=== PATIENT | female | born 1935 | race Caucasian/White ===

== ENCOUNTER 2016-10-26 19:25 | Emergency (ER) | payer OTHER ==
[~2016-10-26] VITALS: Ht 162.6 cm; Wt 86.5 kg
[~2016-10-26 19:25] MED LIST: ATOR-24 PO; BROM0.07 OPL; PRED1SUS3 OPL; TPRSR25 PO; TRIATAB3 PO; ZOLP5TAB PO
[2016-10-26 19:28] VITALS: TEMP 36.6; Ht 162.6 cm; Wt 86.5 kg
[2016-10-26 20:35] LABS: BASO % 0.4 %; BASO ABS # 0.02 K/uL (0-0.2); COMPLETE YES; EOS % 3.4 %; HEMATOCRIT 38.1 % (37-47); IG% 0.2 %; LYMPH % 34.6 %; LYMPH ABS # 1.82 K/uL (1.2-3.4); MEAN CELL VOLUME 85.4 fL (80-100); MEAN CORPUSCULAR HEMOGLOBIN 28.9 pg (25-34); MEAN CORPUSCULAR HGB CONC 33.9 g/dl (32-36); MEAN PLATELET VOLUME 9.5 fL (7.4-10.4); MONO % 6.3 %; NEUT % 55.1 %; PLATELET COUNT 271 K/uL (130-400); RED BLOOD COUNT 4.46 M/uL (4.2-5.4); WHITE BLOOD COUNT 5.26 K/uL (4.8-10.8)
--- NOTE | 2016-10-26 20:41 | DIAGNOSTIC IMAGING REPORT ---
CT OF THE ABDOMEN AND PELVIS WITHOUT CONTRAST, STONE PROTOCOL CLINICAL HISTORY: Right flank pain. COMPARISON STUDY: None. TECHNIQUE: Helical axial images of the abdomen and pelvis were obtained without IV or oral contrast according to renal stone protocol. FINDINGS: Subpleural opacities within the lungs reflect atelectasis. No renal, ureteral or bladder calculi are present. There are small parapelvic cysts. There is no hydronephrosis or hydroureter. Evaluation of the remainder of the abdomen and pelvis is suboptimal on this unenhanced exam. Unenhanced images of liver, spleen, adrenal glands and pancreas are normal. There is a small fat-containing umbilical hernia. There is no evidence for a bowel obstruction. The appendix is normal. There is sigmoid diverticulosis without evidence for acute diverticulitis. There is no lymphadenopathy. A 2.7 cm subcutaneous lesion of the inferior right buttock measures just above water attenuation. No suspicious skeletal lesions are identified. There is no ascites. IMPRESSION: 1. No urinary calculi or hydronephrosis. 2. No acute process within the abdomen or pelvis on unenhanced exam. 3. 2.7 cm subcutaneous lesion of the inferior right buttock which measures just above water attenuation. This may reflect a sebaceous cyst and could be correlated with physical exam. Electronically signed by: Dmitry Rivera M.D. 10/26/2016 8:40 PM Dictated Date/Time: 10/26/2016 8:32 PM
[2016-10-26] MEDS ORDERED: SODIUM CHLORIDE 0.9% 500ML 500 ML IV STA (20:46)
[2016-10-26] MEDS ORDERED: SODIUM CHLORIDE 0.9% 1000ML 1,000 ML IV STA (20:46)
[2016-10-26 20:55] LABS: ALT/SGPT 25 U/L (12-78); BLOOD UREA NITROGEN 20 mg/dl (7-18); BUN/CREATININE RATIO 13.6 (10-20); CARBON DIOXIDE 33 mmol/L (21-32); CHLORIDE 101 mmol/L (98-107); GLUCOSE 136 mg/dl (70-99); POTASSIUM 2.9 mmol/L (3.5-5.1); SODIUM 142 mmol/L (136-145)
[2016-10-26 20:58] LABS: ALKALINE PHOSPHATASE 105 U/L (45-117); AST/SGOT 24 U/L (15-37)
[2016-10-26 21:02] LABS: URINE APPEARANCE CLEAR (CLEAR); URINE BILIRUBIN NEG (NEG); URINE COLOR YELLOW; URINE EPITHELIAL CELL AUTO 20-30 /lpf (0-5); URINE NITRITE NEG (NEG); URINE PH 6.5 (4.5-7.5); URINE SPECIFIC GRAVITY 1.019 (1.000-1.030); UROBILINOGEN NEG (NEG); ZZUR CULT IF INDIC CLEAN CATCH YES
[2016-10-26 21:06] LABS: MANUAL MICROSCOPIC REQUIRED? NO; REVIEW REQ? NO
[2016-10-26] MEDS ORDERED: METO25TA3 PO (21:35)
[2016-10-26 22:00] LABS: CALCIUM 8.8 mg/dl (8.5-10.1)
--- NOTE | 2016-10-26 22:34 | DIAGNOSTIC IMAGING REPORT ---
ABDOMINAL ULTRASOUND, RIGHT UPPER QUADRANT HISTORY: Right upper quadrant pain. COMPARISON: CT of the abdomen and pelvis performed earlier today. FINDINGS: Hepatic echogenicity is mildly increased. This study is compromised by suboptimal penetration. The pancreatic body is normal. The head and tail are obscured. No gallstones are identified. There is no biliary ductal dilatation. There is no right hydronephrosis. IMPRESSION: 1. No gallstones or biliary ductal dilatation. 2. Fatty liver. Electronically signed by: Dmitry Rivera M.D. 10/26/2016 10:33 PM Dictated Date/Time: 10/26/2016 10:32 PM
[2016-10-26 23:42] VITALS: BP 150/66; PULSE 72; O2SAT 98
--- NOTE | 2016-10-27 02:14 | EMERGENCY ROOM VISIT NOTE ---
History Report prepared by [place]: Javier Perales Under the Supervision of: Dr. Dash Goetz M.D. First contact with patient: 19:38 Chief Complaint: FLANK PAIN Stated Complaint: RT SIDE PAIN (INTERNAL) History of Present Illness The patient is an 81 year old female who presents to the Emergency Room with complaints of intermittent right flank pain that began a week ago. She currently rates her discomfort as a 10/10 in severity. The patient's granddaughter states that the pain is worsened with movement. The patient also complains of mild abdominal pain and an episode of diarrhea once. The patient also complains of chills that began with the pain but that resolved. 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 The patient denies any appendectomy or cholecystectomy. She reports that she takes Lipitor and diuretics for her hypertension and high cholesterol. The patient's granddaughter states that the patient has a history of kidney disease. The granddaughter helps translate and the patient feels comfortable with this. She has not taken any analgesia. The patient denies trauma, LOC, headache, fevers, diaphoresis, visual changes, neck pain, chest pain, breathing difficulties, nausea, vomiting, Left-sided abdominal pain, melena, hematochezia, urinary symptoms, numbness, weakness, lymphadenopathy, rash, or other complaints. Source of History: patient, family (granddaughter) Onset: a week ago Position: other (right CVA) Symptom Intensity: 10/10 Timing: intermittent Modifying Factors (Worsening): movement Associated Symptoms: + abdominal pain, + chills, + diarrhea Review of Systems See HPI for pertinent positives and negatives. A total of ten systems were reviewed and were otherwise negative. Past Medical & Surgical Medical Problems: (1) Concussion W/O Coma (2) Hypertension Nos (3) Pure Hypercholesterolem Family History Heart disease Hypertension Social History Smoking Status: Never Smoker Smokeless Tobacco Use: No Alcohol Use: none Marital Status: Housing Status: lives alone Occupation Status: retired Current/Historical Medications Scheduled Atorvastatin (Lipitor), 40 MG PO QPM Metoprolol Succ (Toprol Xl) (Toprol-Xl), 25 MG PO DAILY Triamterene/Hctz (Triamterene/Hctz 37.5-25MG), 1 TABLET PO QPM Scheduled PRN Zolpidem Tartrate (Ambien), 5 MG PO HS PRN for Sleep Allergies Coded Allergies: Furosemide (Verified Allergy, Unknown, FACE GOT RED, 10/26/16) Physical Exam Vital Signs Date Time Temp Pulse Resp B/P Pulse Ox O2 Delivery O2 Flow Rate FiO2 10/26/16 23:42 72 16 150/66 98 10/26/16 22:46 65 16 138/59 95 Room Air 10/26/16 21:30 65 18 152/70 95 Room Air 10/26/16 20:53 66 10/26/16 19:28 36.6 74 18 136/72 95 Room Air Physical Exam GENERAL: Awake, alert, well-appearing, in no distress HENT: Normocephalic, atraumatic. Oropharynx unremarkable. EYES: Normal conjunctiva. Sclera non-icteric. NECK: Supple. No nuchal rigidity. FROM. No JVD. RESPIRATORY: Clear to auscultation. CARDIAC: Regular rate, normal rhythm. Extremities warm and well perfused. Pulses equal. ABDOMEN: Right upper quadrant tenderness to palpation. Soft, non-distended. No rebound or guarding. No masses. RECTAL: Deferred. There is around rubbery mass in the right gluteal region that seems consistent with a sebaceous cyst or lipoma. MUSCULOSKELETAL: Chest examination reveals no tenderness. The back is symmetrical on inspection without obvious abnormality. There is right CVA tenderness to palpation. No joint edema. LOWER EXTREMITIES: Calves are equal size bilaterally and non-tender. No edema. No discoloration. NEURO: Normal sensorium. No sensory or motor deficits noted. SKIN: No rash or jaundice noted. No zoster. Medical Decision & Procedures ER Provider Diagnostic Interpretation: Radiology results as stated below per my review and radiologist interpretation: CT OF THE ABDOMEN AND PELVIS WITHOUT CONTRAST, STONE PROTOCOL CLINICAL HISTORY: Right flank pain. COMPARISON STUDY: None. TECHNIQUE: Helical axial images of the abdomen and pelvis were obtained without IV or oral contrast according to renal stone protocol. FINDINGS: Subpleural opacities within the lungs reflect atelectasis. No renal, ureteral or bladder calculi are present. There are small parapelvic cysts. There is no hydronephrosis or hydroureter. Evaluation of the remainder of the abdomen and pelvis is suboptimal on this unenhanced exam. Unenhanced images of liver, spleen, adrenal glands and pancreas are normal. There is a small fat-containing umbilical hernia. There is no evidence for a bowel obstruction. The appendix is normal. There is sigmoid diverticulosis without evidence for acute diverticulitis. There is no lymphadenopathy. A 2.7 cm subcutaneous lesion of the inferior right buttock measures just above water attenuation. No suspicious skeletal lesions are identified. There is no ascites. IMPRESSION: 1. No urinary calculi or hydronephrosis. 2. No acute process within the abdomen or pelvis on unenhanced exam. 3. 2.7 cm subcutaneous lesion of the inferior right buttock which measures just above water attenuation. This may reflect a sebaceous cyst and could be correlated with physical exam. Electronically signed by: Dmitry Rivera M.D. 10/26/2016 8:40 PM Dictated Date/Time: 10/26/2016 8:32 PM ABDOMINAL ULTRASOUND, RIGHT UPPER QUADRANT HISTORY: Right upper quadrant pain. COMPARISON: CT of the abdomen and pelvis performed earlier today. FINDINGS: Hepatic echogenicity is mildly increased. This study is compromised by suboptimal penetration. The pancreatic body is normal. The head and tail are obscured. No gallstones are identified. There is no biliary ductal dilatation. There is no right hydronephrosis. IMPRESSION: 1. No gallstones or biliary ductal dilatation. 2. Fatty liver. Electronically signed by: Dmitry Rivera M.D. 10/26/2016 10:33 PM Dictated Date/Time: 10/26/2016 10:32 PM Laboratory Results 10/26/16 20:20 Red Blood Count 4.46, Mean Corpuscular Volume 85.4, Mean Corpuscular Hemoglobin 28.9, Mean Corpuscular Hemoglobin Concent 33.9, Mean Platelet Volume 9.5, Neutrophils (%) (Auto) 55.1, Lymphocytes (%) (Auto) 34.6, Monocytes (%) (Auto) 6.3, Eosinophils (%) (Auto) 3.4, Basophils (%) (Auto) 0.4, Neutrophils # (Auto) 2.90, Lymphocytes # (Auto) 1.82, Monocytes # (Auto) 0.33, Eosinophils # (Auto) 0.18, Basophils # (Auto) 0.02 10/26/16 20:20 Test 10/26/16 20:20 10/26/16 20:40 White Blood Count 5.26 K/uL (4.8-10.8) Red Blood Count 4.46 M/uL (4.2-5.4) Hemoglobin 12.9 g/dL (12.0-16.0) Hematocrit 38.1 % (37-47) Mean Corpuscular Volume 85.4 fL (80-100) Mean Corpuscular Hemoglobin 28.9 pg (25-34) Mean Corpuscular Hemoglobin Concent 33.9 g/dl (32-36) Platelet Count 271 K/uL (130-400) Mean Platelet Volume 9.5 fL (7.4-10.4) Neutrophils (%) (Auto) 55.1 % Lymphocytes (%) (Auto) 34.6 % Monocytes (%) (Auto) 6.3 % Eosinophils (%) (Auto) 3.4 % Basophils (%) (Auto) 0.4 % Neutrophils # (Auto) 2.90 K/uL (1.4-6.5) Lymphocytes # (Auto) 1.82 K/uL (1.2-3.4) Monocytes # (Auto) 0.33 K/uL (0.11-0.59) Eosinophils # (Auto) 0.18 K/uL (0-0.5) Basophils # (Auto) 0.02 K/uL (0-0.2) RDW Standard Deviation 44.9 fL (36.4-46.3) RDW Coefficient of Variation 14.3 % (11.5-14.5) Immature Granulocyte % (Auto) 0.2 % Immature Granulocyte # (Auto) 0.01 K/uL (0.00-0.02) Anion Gap 8.0 mmol/L (3-11) Est Creatinine Clear Calc Drug Dose 30.8 ml/min Estimated GFR () 37.2 Estimated GFR (Non- 32.1 BUN/Creatinine Ratio 13.6 (10-20) Calcium Level 8.8 mg/dl (8.5-10.1) Total Bilirubin 0.6 mg/dl (0.2-1) Direct Bilirubin < 0.1 mg/dl (0-0.2) Aspartate Amino Transf (AST/SGOT) 24 U/L (15-37) Alanine Aminotransferase (ALT/SGPT) 25 U/L (12-78) Alkaline Phosphatase 105 U/L (45-117) Total Protein 7.5 gm/dl (6.4-8.2) Albumin 3.5 gm/dl (3.4-5.0) Lipase 210 U/L (73-393) Urine Color YELLOW Urine Appearance CLEAR (CLEAR) Urine pH 6.5 (4.5-7.5) Urine Specific [place] 1.019 (1.000-1.030) Urine Protein NEG (NEG) Urine Glucose (UA) NEG (NEG) Urine Ketones NEG (NEG) Urine Occult Blood NEG (NEG) Urine Nitrite NEG (NEG) Urine Bilirubin NEG (NEG) Urine Urobilinogen NEG (NEG) Urine Leukocyte Esterase MODERATE (NEG) Urine WBC (Auto) 10-30 /hpf (0-5) Urine RBC (Auto) 0-4 /hpf (0-4) Urine Hyaline Casts (Auto) 1-5 /lpf (0-5) Urine Epithelial Cells (Auto) 20-30 /lpf (0-5) Urine Bacteria (Auto) NEG (NEG) Laboratory results reviewed by me ED Course 1942: The patient was evaluated in room A9B. A complete history and physical exam was performed. 2129: I reevaluated the patient and she is resting comfortably. 2304: I reevaluated the patient and she is resting comfortably. I discussed the exam findings with her and her granddaughter and I discussed the treatment plan. After a prolonged conversation, they agreed with the treatment plan and are ready to go home. Medical Decision Triage Nursing notes reviewed. The patient's presentation and history were concerning for flank pain. Etiologies such as renal colic, musculoskeletal, biliary pathology, appendicitis , diverticulitis, mesenteric ischemia, aortic pathology, infections, inflammatory bowel disease, PUD, UTI, as well as others were entertained. The patient was evaluated. She was uncomfortable with movement. She felt better with rest. She has not taken any analgesia. I did offer the patient analgesia however she declined. I had the granddaughter helped translate for the patient as the patient seemed most comfortable with this. The patient had IV fluids ordered and they agreed for this and she just urinated and a urine specimen will be necessary. I did not want to give the patient anything by mouth at that point in time. The patient then refused the IV fluids. Apparently she had given a urine specimen. She did not want to have any fluids administered and she did not feel she needed these. The patient had blood work obtained. She had no leukocytosis or anemia found. Her chemistry panel did reveal a mild elevation of her creatinine. It was 1.5. Prior records indicate she had normal creatinine but this was years ago. The patient has recently had blood work done about a month ago per the granddaughter. This was obtained to the [facility] medical record and this revealed her creatinine was 1.1. She also was found to have hypokalemia. The patient's urinalysis was unremarkable. She had no other abnormalities noted. She underwent CT imaging which did not reveal any evidence of emergent pathology. Given her pain her gallbladder was also evaluated. This was unremarkable as well. The patient is quite tender to light touch which raises concerns for a musculoskeletal etiology. She does have degenerative change of the spine. She does not have any findings consistent with cauda equina, significant disc protrusion, discitis, or other emergent spinal pathology. Given the reproducible nature of the patient's pain it seems to be most likely a musculoskeletal source. I discussed all of these issues at great length with the daughter and patient. I had the daughter translate all of the findings to the patient. The patient has hypokalemia and mild acute kidney injury. On multiple occasions I tried to convince the patient and granddaughter that oral potassium and IV fluids would be necessary. The patient has an aversion to taking medications and would not take analgesia , the potassium, or IV fluids. I discussed that these were very important and if the patient worsens she can have severe complications to her health. The patient does not feel that this is necessary and does not want to stay in the hospital any longer. I did discuss the workup and algorithm as a process of elimination. The granddaughter was upset at the nursing staff. She did not feel that nursing staff was attentive. She did not feel that there was enough time focused on her grandmother. She felt that there was a low volume in the department when in fact department was at capacity and did discuss this with her. The department had nearly 40 other patients. She was very confrontational and I tried to answer all of her questions. As they are denoted , I spent a significant amount of time in the room, more than 45 minutes reviewing all the issues and trying to have the patient comply with recommended treatment. The granddaughter noted that she also has a prescription for potassium at home prescribed by the patient's primary care physician but the patient will not take it. They do not want any additional evaluation or additional time in the emergency department. They both desire discharge. The patient was very concerned about her IV and wanted it out. She asked me to do this. I did remove her IV in the standard fashion. As the patient needs close follow-up because of this concerning potassium and kidney issue as well as her pain which is not clearly elucidated at this time, I instructed the patient and granddaughter that she needs to be seen tomorrow in the office for reevaluation. I did inform case management so that they can contact the office in the morning when they open to help facilitate a visit tomorrow. I did encourage the patient and the granddaughter to come back to the emergency department. The patient and granddaughter have demonstrated no significant defect in the decision-making capacity to make choices. The encounter had a good level of communication with language the patient through the granddaughter can easily understand. I feel trust was present and conveyed that our action/intentions were the best interest of the patient. The patient was given all relevant information and reiterated the explained risks and benefits. The patient explained the reasoning for refusing treatment clearly. The patient possesses and expresses a set of values and goals, the ability to communicate and understand, and an ability to reason and deliberate. Despite acting emphatically, attentively and with the utmost patient's the patient declined further treatment. I offered options, negotiated, and explored every reasonable choice. I must respect the patient's autonomy and that they feel that their choices are best for them despite the associated risks of refusing treatment. By the evaluation outlined above other emergent etiologies such as those listed in the differential, as well as others, were deemed relatively unlikely. The patient and granddaughter were informed about the findings as listed above. All questions were answered. Return instructions were outlined and the patient was discharged in stable condition. The patient was referred to PCP for follow-up tomorrow for a recheck of the current condition. The chart was completed utilizing [employer] Speech voice recognition software. Grammatical errors, random word insertions, pronoun errors, and incomplete sentences are an occasional consequence of this system due to software limitations, ambient noise, and hardware issues. Any formal questions or concerns about the content, text, or information contained within the body of this dictation should be directly addressed to the physician for clarification. Impression Primary Impression: Right flank pain Scribe Attestation The scribe's documentation has been prepared under my direction and personally reviewed by me in its entirety. I confirm that the note above accurately reflects all work, treatment, procedures, and medical decision making performed by me. Departure Information Dispostion Home / Self-Care Referrals Dakota Monahan D.O. (PCP) Forms HOME CARE DOCUMENTATION FORM, IMPORTANT VISIT INFORMATION Patient Instructions Diet High Potassium Id, My [facility] [employer] Additional Instructions BACK PAIN INSTRUCTIONS: Acetaminophen(Tylenol) may be used for fever or pain. Use 1000mg every six hours as needed. Avoid using more than 4000mg in a 24 hour period. Rest and avoid heavy lifting until your symptoms resolve and then gradually return to full activity. A good rule of thumb is if it hurts your back to perform a certain activity, then it should be avoided until you are healthy again. A heating pad, warm compresses, or a hot shower may help with tight muscles and can be done several times a day as needed. Continue current medications. Return to the ER immediately for any numbness, tingling, severe pain, loss of control of your bowels or bladder, inability to walk, or as needed. Follow up with your primary care physician tomorrow for a recheck of your current condition. Your kidney function is diminished and the potassium level is very low. Take your potassium supplement as previously prescribed by Dr. Monahan. It is very important to have a follow-up as soon as possible to protect your kidneys, fix the potassium, and further investigate the back pain.
== END 2016-10-26 23:43 | disposition home or self-care (01) ==
LOC: C.EDB 19:26 → C.EDA 23:43
DX: R10.9 Unspecified abdominal pain (principal); I10 Essential (primary) hypertension; E78.00 Pure hypercholesterolemia, unspecified; Z82.49 Family history of ischemic heart disease and other diseases of the circulatory system; Z79.899 Other long term (current) drug therapy